=== PATIENT | male | born 1945 | race Caucasian/White ===

== ENCOUNTER 2021-04-07 19:18 | Inpatient (IN) | payer OTHER, MEDICARE ==
[~2021-04-07] VITALS: Ht 185.4 cm; Wt 125.0 kg
[2021-04-07 20:36] LABS: HEMATOCRIT 37.7 % (39.0-50.0); HEMOGLOBIN 12.4 g/dl (14.0-18.0); IMMATURE GRANULOCYTES 0.8 % (0.0-5.0); MEAN CELL VOLUME 98.4 fL CALC (80.0-100.0); MEAN CORPUSCULAR HGB 32.4 pG CALC (26.0-32.0); MEAN CORPUSCULAR HGB CONC 32.9 g/dL CAL (32.0-36.0); NEUT# 14.89 thou/uL (1.82-7.42); RED BLOOD COUNT 3.83 mill/uL (4.70-6.10); RED CELL DISTRI WIDTH 13.7 % (11.5-15.5)
[2021-04-07 20:47] LABS: ALBUMIN 3.9 g/dL (3.2-5.0); ALKALINE PHOSPHATASE 55 u/l (38-126); ANION GAP 13 (6-22 (CALC)); BILIRUBIN, TOTAL 1.3 mg/dL (0.0-1.4); BUN 27 mg/dL (8-23); BUN/CREATININE RATIO 15 (12-20 (CALC)); CARBON DIOXIDE 25 mmol/l (22-30); CHLORIDE 105 mmol/l (95-108); CREATININE 1.9 mg/dL (0.7-1.3); GFR 35 ML/MIN (>=60 (CALC)); GFR FOR AFR.AMER. 42 ML/MIN (>=60 (CALC)); POTASSIUM 4.1 mmol/l (3.5-5.1); SGOT/AST 26 u/l (19-48); SODIUM 139 mmol/l (137-146); TOTAL PROTEIN 8.4 g/dL (6.3-8.2)
[2021-04-07 21:00] LABS: MYOGLOBIN 100 ng/mL (0 - 121)
[2021-04-07 21:44] LABS: URINE BILIRUBIN - DIPSTICK NEGATIVE (NEGATIVE); URINE BLOOD DIPSTICK LARGE (NEGATIVE); URINE COLOR YELLOW; URINE GLUCOSE - DIPSTICK NEGATIVE (NEGATIVE); URINE KETONE NEGATIVE (NEGATIVE); URINE LEUK ESTERASE NEGATIVE (NEGATIVE); URINE PH 7.5 (4.5-8.0); URINE PROTEIN - DIPSTICK TRACE mg/dL (NEG-TRACE); URINE UROBILINOGEN - DIPSTICK 0.2 E.U./dL (0.2)
[2021-04-07 21:45] LABS: URINE NITRITE - DIPSTICK NEGATIVE (Negative)
[2021-04-07 21:50] LABS: URINE WBC 0-2 WBC/hpf (0-5)
[2021-04-07] MEDS ORDERED: ESCITALOPRAM OX10 MG PO (23:25)
[2021-04-07] MEDS ORDERED: SPIRONOLACTONE50 MG PO (23:25)
[2021-04-07] MEDS ORDERED: ELIQUIS2.5 MG PO (23:26)
[2021-04-07] MEDS ORDERED: TRAZODONE50 MG PO (23:26)
[2021-04-07] MEDS ORDERED: METOPROLOL100 M1 PO ×2 (23:27→23:29)
[2021-04-07] MEDS ORDERED: FAMOTIDINE20 M1 PO (23:29)
[2021-04-07] MEDS ORDERED: CYMBALTA30 MG PO (23:30)
[2021-04-07] MEDS ORDERED: CRESTOR40 MG PO (23:31)
[2021-04-07] MEDS ORDERED: VITAMIN D32000 UNI2 PO (23:31)
[2021-04-07] MEDS ORDERED: COZAAR50 MG PO (23:32)
[2021-04-07] MEDS ORDERED: FUROSEMIDE20 MG PO (23:32)
[2021-04-07] MEDS ORDERED: BUSPIRONE5 MG PO (23:33)
[2021-04-07] MEDS ORDERED: VITAMIN E400 UNIT PO (23:34)
[2021-04-07] MEDS ORDERED: ARIPIPRAZOLE2 MG PO (23:35)
[2021-04-07] MEDS ORDERED: THYROID MED (23:37)
[2021-04-08] VITALS (10 sets, daily range): BP systolic 84–141; BP diastolic 40–73
[2021-04-08 05:19] LABS: HEMATOCRIT 34.4 % (39.0-50.0); HEMOGLOBIN 11.3 g/dl (14.0-18.0); MEAN CELL VOLUME 99.4 fL CALC (80.0-100.0); MEAN CORPUSCULAR HGB 32.7 pG CALC (26.0-32.0); MEAN CORPUSCULAR HGB CONC 32.8 g/dL CAL (32.0-36.0); RED BLOOD COUNT 3.46 mill/uL (4.70-6.10); RED CELL DISTRI WIDTH 13.8 % (11.5-15.5)
[2021-04-08 05:37] LABS: CREATININE 1.6 mg/dL (0.7-1.3); MAGNESIUM 2.1 mg/dL (1.6-2.3); POTASSIUM 3.7 mmol/l (3.5-5.1)
[2021-04-08] MEDS ORDERED: LEVOTHYROXIN25 MC1 PO (11:19)
[2021-04-08] MEDS ORDERED: TRAZODONE100 MG PO (12:16)
[2021-04-09 00:31] VITALS: BP 107/59
[2021-04-09 04:50] VITALS: BP 92/56
[2021-04-09 05:06] LABS: HEMATOCRIT 32.7 % (39.0-50.0); HEMOGLOBIN 10.5 g/dl (14.0-18.0); MEAN CELL VOLUME 100.9 fL CALC (80.0-100.0); MEAN CORPUSCULAR HGB 32.4 pG CALC (26.0-32.0); MEAN CORPUSCULAR HGB CONC 32.1 g/dL CAL (32.0-36.0); RED BLOOD COUNT 3.24 mill/uL (4.70-6.10)
[2021-04-09 05:19] LABS: CREATININE 1.5 mg/dL (0.7-1.3); MAGNESIUM 2.1 mg/dL (1.6-2.3); POTASSIUM 3.8 mmol/l (3.5-5.1)
[2021-04-09 07:58] VITALS: BP 92/52
[2021-04-09 11:22] VITALS: BP 111/68
[2021-04-09 15:50] VITALS: BP 111/62
[2021-04-09 19:06] VITALS: BP 118/65
[2021-04-10 00:11] VITALS: BP 121/70
[2021-04-10 04:00] VITALS: BP 150/83
[2021-04-10 04:59] LABS: HEMATOCRIT 32.1 % (39.0-50.0); HEMOGLOBIN 10.5 g/dl (14.0-18.0); MEAN CELL VOLUME 99.4 fL CALC (80.0-100.0); MEAN CORPUSCULAR HGB 32.5 pG CALC (26.0-32.0); MEAN CORPUSCULAR HGB CONC 32.7 g/dL CAL (32.0-36.0); RED BLOOD COUNT 3.23 mill/uL (4.70-6.10); RED CELL DISTRI WIDTH 13.9 % (11.5-15.5)
[2021-04-10 05:26] LABS: CREATININE 1.4 mg/dL (0.7-1.3); MAGNESIUM 2.2 mg/dL (1.6-2.3); POTASSIUM 3.8 mmol/l (3.5-5.1)
[2021-04-10 07:15] VITALS: BP 120/72
[2021-04-10 11:02] VITALS: BP 120/72
[2021-04-10 15:57] VITALS: BP 118/72
[2021-04-10 19:00] VITALS: BP 117/64
[2021-04-11] VITALS: BP 114/71
[2021-04-11 04:00] VITALS: BP 98/63
[2021-04-11 09:24] LABS: HEMATOCRIT 32.6 % (39.0-50.0); HEMOGLOBIN 10.5 g/dl (14.0-18.0); IMMATURE GRANULOCYTES 0.7 % (0.0-5.0); MEAN CELL VOLUME 98.2 fL CALC (80.0-100.0); MEAN CORPUSCULAR HGB 31.6 pG CALC (26.0-32.0); MEAN CORPUSCULAR HGB CONC 32.2 g/dL CAL (32.0-36.0); NEUT# 5.57 thou/uL (1.82-7.42); RED BLOOD COUNT 3.32 mill/uL (4.70-6.10); RED CELL DISTRI WIDTH 13.8 % (11.5-15.5)
[2021-04-11 09:26] VITALS: BP 106/61
[2021-04-11 09:40] LABS: CREATININE 1.6 mg/dL (0.7-1.3); POTASSIUM 3.5 mmol/l (3.5-5.1)
[2021-04-11 11:34] VITALS: BP 114/55
[2021-04-11 14:55] VITALS: BP 132/66
[2021-04-11 19:00] VITALS: BP 111/56
[2021-04-12] VITALS: BP 128/67
[2021-04-12 03:48] VITALS: BP 138/64
[2021-04-12 05:41] LABS: HEMATOCRIT 30.9 % (39.0-50.0); HEMOGLOBIN 10.1 g/dl (14.0-18.0); MEAN CELL VOLUME 98.1 fL CALC (80.0-100.0); MEAN CORPUSCULAR HGB 32.1 pG CALC (26.0-32.0); MEAN CORPUSCULAR HGB CONC 32.7 g/dL CAL (32.0-36.0); RED BLOOD COUNT 3.15 mill/uL (4.70-6.10); RED CELL DISTRI WIDTH 13.7 % (11.5-15.5)
[2021-04-12 06:01] LABS: CREATININE 1.6 mg/dL (0.7-1.3); POTASSIUM 3.8 mmol/l (3.5-5.1)
[2021-04-12 07:29] VITALS: BP 115/64
[2021-04-12] MEDS ORDERED: DOXYCYCL HYC100 MG PO (09:12)
[2021-04-12 10:44] VITALS: BP 118/66
[2021-04-12] MEDS ORDERED: VANTIN200 M1 PO (13:33)
[2021-04-12] MEDS ORDERED: VENTOLIN HFA108 MCG IN (14:10)
== END 2021-04-12 14:10 | disposition home health service (06) | DRG 194 ==
LOC: ED 19:18 → ED-I 22:27 → ED 22:41 → ICU 22:42 → MS2 22:42
PROVIDERS: Emergency Medicine; Nurse Practitioner; ADMIT Hospitalist; ATTEND Hospitalist
PROC: 0T9B70Z Drainage of Bladder with Drainage Device, Via Natural or Artificial Opening (ICD-10-PCS; principal; 2021-04-07)
DX: J18.9 Pneumonia, unspecified organism (principal); N17.9 Acute kidney failure, unspecified; L03.115 Cellulitis of right lower limb; R09.02 Hypoxemia; I50.9 Heart failure, unspecified; I48.91 Unspecified atrial fibrillation; M06.9 Rheumatoid arthritis, unspecified; G62.9 Polyneuropathy, unspecified; E03.9 Hypothyroidism, unspecified; F41.9 Anxiety disorder, unspecified; F32.A Depression, unspecified; F17.200 Nicotine dependence, unspecified, uncomplicated; Z95.0 Presence of cardiac pacemaker; Z79.01 Long term (current) use of anticoagulants; Z20.822 Contact with and (suspected) exposure to COVID-19
CPT/HCPCS: S0073

== ENCOUNTER 2021-07-28 19:16 | Inpatient (IN) | payer OTHER, MEDICARE ==
[~2021-07-28] VITALS: Ht 185.4 cm; Wt 120.0 kg
[2021-07-28] VITALS (22 sets, daily range): BP systolic 92–131; BP diastolic 36–100
[~2021-07-28 19:16] MED LIST: ARIPIPRAZOLE2 MG PO; BUSPIRONE5 MG PO; COZAAR50 MG PO; CRESTOR40 MG PO; CYMBALTA30 MG PO; DOXYCYCL HYC100 MG PO; ELIQUIS2.5 MG PO; ESCITALOPRAM OX10 MG PO; FAMOTIDINE20 M1 PO; FUROSEMIDE20 MG PO; LEVOTHYROXIN25 MC1 PO; METOPROLOL100 M1 PO; SPIRONOLACTONE50 MG PO; THYROID MED; TRAZODONE100 MG PO; TRAZODONE50 MG PO; VANTIN200 M1 PO; VENTOLIN HFA108 MCG IN; VITAMIN D32000 UNI2 PO; VITAMIN E400 UNIT PO
[2021-07-28 19:52] LABS: HEMATOCRIT 29.4 % (39.0-50.0); HEMOGLOBIN 9.3 g/dl (14.0-18.0); IMMATURE GRANULOCYTES 0.3 % (0.0-5.0); MEAN CELL VOLUME 101.4 fL CALC (80.0-100.0); MEAN CORPUSCULAR HGB 32.1 pG CALC (26.0-32.0); MEAN CORPUSCULAR HGB CONC 31.6 g/dL CAL (32.0-36.0); NEUT# 9.76 thou/uL (1.82-7.42); RED BLOOD COUNT 2.9 mill/uL (4.70-6.10); RED CELL DISTRI WIDTH 14.4 % (11.5-15.5)
[2021-07-28 20:10] LABS: ALBUMIN 3.9 g/dL (3.2-5.0); ALKALINE PHOSPHATASE 58 u/l (38-126); CARBON DIOXIDE 23 mmol/l (22-30); CHLORIDE 105 mmol/l (95-108); SGOT/AST 19 u/l (19-48); SODIUM 140 mmol/l (137-146); TOTAL PROTEIN 8.2 g/dL (6.3-8.2)
[2021-07-28 20:11] LABS: URINE BILIRUBIN - DIPSTICK NEGATIVE (NEGATIVE); URINE BLOOD DIPSTICK LARGE (NEGATIVE); URINE GLUCOSE - DIPSTICK NEGATIVE (NEGATIVE); URINE KETONE NEGATIVE (NEGATIVE); URINE LEUK ESTERASE NEGATIVE (NEGATIVE); URINE PROTEIN - DIPSTICK 30 mg/dL (NEG-TRACE); URINE UROBILINOGEN - DIPSTICK 0.2 E.U./dL (0.2)
[2021-07-28 20:12] LABS: URINE COLOR DK. YELLOW; URINE NITRITE - DIPSTICK NEGATIVE (Negative)
[2021-07-28 20:13] LABS: ANION GAP 17 (6-22 (CALC)); BILIRUBIN, TOTAL 0.7 mg/dL (0.0-1.4); BUN 45 mg/dL (8-23); BUN/CREATININE RATIO 12 (12-20 (CALC)); CREATININE 3.9 mg/dL (0.7-1.3); GFR 15 ML/MIN (>=60 (CALC)); GFR FOR AFR.AMER. 18 ML/MIN (>=60 (CALC)); POTASSIUM 5.1 mmol/l (3.5-5.1)
[2021-07-28 20:16] LABS: URINE RBC 50-100 RBC/hpf (0-5)
[2021-07-28 20:23] LABS: MYOGLOBIN 112 ng/mL (0 - 121)
[2021-07-29] VITALS (90 sets, daily range): BP systolic 88–135; BP diastolic 38–77
[2021-07-29 05:25] LABS: HEMATOCRIT 26.6 % (39.0-50.0); HEMOGLOBIN 8.2 g/dl (14.0-18.0); MEAN CELL VOLUME 104.3 fL CALC (80.0-100.0); MEAN CORPUSCULAR HGB 32.2 pG CALC (26.0-32.0); MEAN CORPUSCULAR HGB CONC 30.8 g/dL CAL (32.0-36.0); RED BLOOD COUNT 2.55 mill/uL (4.70-6.10); RED CELL DISTRI WIDTH 14.5 % (11.5-15.5)
[2021-07-29 05:46] LABS: CREATININE 3.4 mg/dL (0.7-1.3); MAGNESIUM 2.4 mg/dL (1.6-2.3)
[2021-07-29 05:50] LABS: POTASSIUM 5.2 mmol/l (3.5-5.1)
[2021-07-30] VITALS (62 sets, daily range): BP systolic 51–136; BP diastolic 25–79
[2021-07-30 05:15] LABS: HEMATOCRIT 25.7 % (39.0-50.0); HEMOGLOBIN 8.1 g/dl (14.0-18.0); IMMATURE GRANULOCYTES 0.4 % (0.0-5.0); MEAN CELL VOLUME 102.8 fL CALC (80.0-100.0); MEAN CORPUSCULAR HGB 32.4 pG CALC (26.0-32.0); MEAN CORPUSCULAR HGB CONC 31.5 g/dL CAL (32.0-36.0); NEUT# 11.69 thou/uL (1.82-7.42); RED BLOOD COUNT 2.5 mill/uL (4.70-6.10); RED CELL DISTRI WIDTH 14.4 % (11.5-15.5)
[2021-07-30 05:38] LABS: BILIRUBIN, TOTAL 0.9 mg/dL (0.0-1.4); CREATININE 3.3 mg/dL (0.7-1.3); POTASSIUM 4.6 mmol/l (3.5-5.1)
[2021-07-30 05:39] LABS: TOTAL PROTEIN 6.5 g/dL (6.3-8.2)
[2021-07-30 23:28] LABS: HEMATOCRIT 27.7 % (39.0-50.0); HEMOGLOBIN 8.4 g/dl (14.0-18.0); IMMATURE GRANULOCYTES 0.4 % (0.0-5.0); MEAN CELL VOLUME 104.5 fL CALC (80.0-100.0); MEAN CORPUSCULAR HGB 31.7 pG CALC (26.0-32.0); MEAN CORPUSCULAR HGB CONC 30.3 g/dL CAL (32.0-36.0); NEUT# 17.1 thou/uL (1.82-7.42); RED BLOOD COUNT 2.65 mill/uL (4.70-6.10); RED CELL DISTRI WIDTH 14.6 % (11.5-15.5)
[2021-07-30 23:38] LABS: CREATININE 3.7 mg/dL (0.7-1.3); POTASSIUM 4.5 mmol/l (3.5-5.1)
[2021-07-30 23:48] LABS: INTERNATIONAL NORMALIZED RATIO 1.3 RATIO (0.7-1.3); PROTHROMBIN TIME 13.3 SECONDS (9.0-12.5)
[2021-07-31] VITALS (226 sets, daily range): BP systolic 64–142; BP diastolic 21–79
[2021-07-31 05:20] LABS: MEAN CELL VOLUME 107.6 fL CALC (80.0-100.0); MEAN CORPUSCULAR HGB 31.9 pG CALC (26.0-32.0); MEAN CORPUSCULAR HGB CONC 29.6 g/dL CAL (32.0-36.0); RED BLOOD COUNT 2.51 mill/uL (4.70-6.10); RED CELL DISTRI WIDTH 14.7 % (11.5-15.5)
[2021-07-31 05:37] LABS: CREATININE 4.1 mg/dL (0.7-1.3); MAGNESIUM 2.1 mg/dL (1.6-2.3)
[2021-07-31 05:45] LABS: POTASSIUM 5.2 mmol/l (3.5-5.1)
[2021-07-31 21:51] LABS: CREATININE 4.2 mg/dL (0.7-1.3); POTASSIUM 4.6 mmol/l (3.5-5.1)
[2021-08-01] VITALS (23 sets, daily range): BP systolic 87–114; BP diastolic 49–69
[2021-08-01 05:28] LABS: ALBUMIN 2.5 g/dL (3.2-5.0); CREATININE 4.6 mg/dL (0.7-1.3); POTASSIUM 4.6 mmol/l (3.5-5.1)
[2021-08-01 06:31] LABS: HEMATOCRIT 24.4 % (39.0-50.0); HEMOGLOBIN 7.6 g/dl (14.0-18.0); IMMATURE GRANULOCYTES 0.5 % (0.0-5.0); MEAN CELL VOLUME 101.7 fL CALC (80.0-100.0); MEAN CORPUSCULAR HGB 31.7 pG CALC (26.0-32.0); MEAN CORPUSCULAR HGB CONC 31.1 g/dL CAL (32.0-36.0); NEUT# 11.03 thou/uL (1.82-7.42); RED BLOOD COUNT 2.4 mill/uL (4.70-6.10); RED CELL DISTRI WIDTH 14.4 % (11.5-15.5)
== END 2021-08-01 21:00 | disposition short-term general hospital (02) | DRG 208 ==
LOC: ED 19:16 → ED-I 20:34 → ED 20:44 → MS2 20:45 → ICU 20:45 → MS2 20:45 → ED-I 20:46 → ICU 07-29 06:59
PROVIDERS: Emergency Medicine; Internal Medicine; Internal Medicine Nephrology; ADMIT Hospitalist; ATTEND Hospitalist
PROC: 5A09457 Assistance with Respiratory Ventilation, 24-96 Consecutive Hours, Continuous Positive Airway Pressure (ICD-10-PCS; principal; 2021-07-28)
PROC: 0T9B70Z Drainage of Bladder with Drainage Device, Via Natural or Artificial Opening (ICD-10-PCS; 2021-07-29)
PROC: 5A1945Z Respiratory Ventilation, 24-96 Consecutive Hours (ICD-10-PCS; 2021-07-30)
PROC: 0BH17EZ Insertion of Endotracheal Airway into Trachea, Via Natural or Artificial Opening (ICD-10-PCS; 2021-07-30)
PROC: 02HV33Z Insertion of Infusion Device into Superior Vena Cava, Percutaneous Approach (ICD-10-PCS; 2021-07-31)
DX: J18.9 Pneumonia, unspecified organism (principal); J96.01 Acute respiratory failure with hypoxia; N17.0 Acute kidney failure with tubular necrosis; J96.02 Acute respiratory failure with hypercapnia; I13.0 Hypertensive heart and chronic kidney disease with heart failure and stage 1 through stage 4 chronic kidney disease, or unspecified chronic kidney disease; E87.4 Mixed disorder of acid-base balance; L03.115 Cellulitis of right lower limb; I50.22 Chronic systolic (congestive) heart failure; D62 Acute posthemorrhagic anemia; J44.0 Chronic obstructive pulmonary disease with (acute) lower respiratory infection; I95.9 Hypotension, unspecified; D63.1 Anemia in chronic kidney disease; I49.3 Ventricular premature depolarization; N18.30 Chronic kidney disease, stage 3 unspecified; I48.91 Unspecified atrial fibrillation; E86.0 Dehydration; R31.9 Hematuria, unspecified; M06.9 Rheumatoid arthritis, unspecified; G62.9 Polyneuropathy, unspecified; Z95.810 Presence of automatic (implantable) cardiac defibrillator; Z20.822 Contact with and (suspected) exposure to COVID-19
CPT/HCPCS: J0692; J1956; J2060; Q5106 EC; S0164